=== PATIENT | female | born 1990 | race Two or more races ===

== ENCOUNTER 2020-10-21 23:10 | Emergency (ER) | payer BC ==
[~2020-10-21] VITALS: Ht 165.1 cm; Wt 68.0 kg
--- NOTE | 2020-10-21 23:24 | NUR ---
ED Nurse Note: Pt walked into the ED with c/o right wrist pain and swelling since 09/29/20. Pain is worse when moving. Pt have a wrist splint applied but with no relief; pain 04/26. Pain radiates to elbow. Pt denies fever/chills, N/V/D. No visible bleeding/cut/trauma upon assessment. Pt is AAOx4 and ambulatory.
--- NOTE | 2020-10-21 23:25 | NUR ---
ED Nurse Note: ERMD at bedside
[2020-10-21] MEDS ORDERED: IBUPROFEN600 M1 ORAL (23:28)
[2020-10-21] MEDS ORDERED: PREDNISONE20 MG ORAL (23:28)
--- NOTE | 2020-10-21 23:28 | Emergency Room Report ---
History of Present Illness General Chief Complaint: Upper Extremity Injury Source: Patient Present Illness HPI This a 30-year-old female who is right-hand dominant. She presents with chief plaint of right wrist pain. Pain is been ongoing for about 3 weeks now. Localized to the base of the first met her carpal bone and wrist area. Worse with movement. Better with rest. She bought a wrist splint and that helped. No fever chills. 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 Denies any other complaint. Pain is 7 out of 10. Pain radiates to her elbow when she bends her wrist ulnarly. Allergies: Coded Allergies: No Known Allergies (Unverified , 10/21/20) COVID-19 Screening Contact w/high risk pt: No Experienced COVID-19 symptoms?: No COVID-19 Testing performed ECONOMICS CONSULTANT: No Patient History Past Medical History: see triage record, old chart reviewed Past Surgical History: none Pertinent Family History: none Social History: Denies: smoking Last Menstrual Period: 09/2020 Now: No Immunizations: other Reviewed Nursing Documentation: PMH: Agreed; PSxH: Agreed Nursing Documentation-PMH Past Medical History: No Stated History Review of Systems Eye: Denies: eye pain, blurred vision ENT: Denies: ear pain, nose congestion, throat swelling Respiratory: Denies: cough, shortness of breath Cardiovascular: Denies: chest pain, palpitations Gastrointestinal: Denies: abdominal pain, diarrhea, nausea, vomiting Musculoskeletal: Reports: joint pain; Denies: back pain Skin: Denies: rash Neurological: Denies: headache, numbness Endocrine: Denies: increased thirst, increased urine Hematologic/Lymphatic: Denies: easy bruising All Other Systems: negative except mentioned in HPI Physical Exam Vital Signs Date Time Temp Pulse Resp B/P (MAP) Pulse Ox O2 Delivery O2 Flow Rate FiO2 10/21/20 23:14 98.6 74 16 113/68 (83) 98 Room Air Vitals normal Sp02 EP Interpretation: reviewed, normal General Appearance: well appearing, no apparent distress, alert Head: normocephalic, atraumatic Eyes: bilateral eye PERRL, bilateral eye EOMI ENT: hearing grossly normal, normal pharynx Neck: full range of motion, supple, no meningismus Respiratory: chest non-tender, lungs clear, normal breath sounds Cardiovascular #1: regular rate, rhythm, no murmur Gastrointestinal: normal bowel sounds, non tender, no mass, no organomegaly, no bruit, non-distended Musculoskeletal: back normal, other - Right wrist: She had tenderness along the tendon of the thumb by the wrist. Worse with movement. No redness. No warmth. Psychiatric: mood/affect normal Medical Decision Making Diagnostic Impression: Primary Impression: Tendinitis, de Quervain's ER Course Patient presents with symptom consistent with de Quervain's tendinitis. No evidence of septic joint. No evidence of any trauma or dislocation. Patient has a splint on already. We will continue with that. Other X-Ray Diagnostic Results Other X-Ray Diagnostic Results : X-Ray ordered: Right wrist x-ray # of Views/Limited Vs Complete: Complete Indication: Pain EP Interpretation: Yes Interpretation: no dislocation, no soft tissue swelling, no fractures Impression: No acute disease Electronically Signed by: John Main MD Last Vital Signs Date Time Temp Pulse Resp B/P (MAP) Pulse Ox O2 Delivery O2 Flow Rate FiO2 10/21/20 23:14 98.6 74 16 113/68 (83) 98 Room Air Status: improved Disposition: HOME, SELF-CARE Condition: Stable Scripts Prednisone* (PREDNISONE*) 20 Mg Tablet 20 MG ORAL DAILY, #7 TAB Prov: John Main MD 10/21/20 Ibuprofen* (MOTRIN*) 600 Mg Tablet 600 MG ORAL Q6H PRN for For Pain, #30 TAB 0 Refills Prov: John Main MD 10/21/20 Additional Instructions: Follow-up with your doctor in 7 days. You may need referral to see orthopedic doctor if not better. Return if symptoms worsen. John Main MD Oct 21, 2020 23:28
--- NOTE | 2020-10-21 23:30 | NUR ---
ED Nurse Note: Xray at bedside done
[2020-10-21 23:37] VITALS: BP 113/68
--- NOTE | 2020-10-21 23:39 | NUR ---
ER DISCHARGE NOTE: Patient is cleared to be discharged per ERMD, pt is aox4, on room air, with stable vital signs. pt was given dc and prescription instructions, pt was able to verbalize understanding, pt id band removed. pt is able to ambulate with steady gait. pt took all belongings.
--- NOTE | 2020-10-22 19:29 | Diagnostic Imaging Report ---
Clinical Indication:Right wrist pain Technique: 3 views of the right wrist Comparison: None Findings: No acute fracture. No dislocation. Joint spaces are preserved Impression: Negative
== END 2020-10-22 00:20 | disposition home or self-care (01) ==
LOC: EMR 23:27
DX: M65.4 Radial styloid tenosynovitis [de Quervain] (principal)
CPT/HCPCS: 99282